=== PATIENT | female | born 1990 | race Two or more races ===

== ENCOUNTER 2022-03-16 13:00 | Inpatient (IN) | payer OTHER ==
[~2022-03-16] VITALS: Ht 160 cm; Wt 56.2 kg
[2022-03-29] MEDS ORDERED: VALACYCLOVIR1000 MG PO (06:56)
[2022-03-29] MEDS ORDERED: PRENATAL TABLE1 EAC1 PO (06:57)
[2022-03-29] MEDS ORDERED: FOLIC ACID20 MG PO (06:58)
== END 2022-03-31 13:52 | disposition home or self-care (01) | DRG 768 ==
LOC: LDR 03-27 13:00 → OB/GYN 03-29 16:44
PROVIDERS: ADMIT Obstetrics & Gynecology Maternal & Fetal Medicine; ATTEND Obstetrics & Gynecology Maternal & Fetal Medicine
PROC: 10E0XZZ Delivery of Products of Conception, External Approach (ICD-10-PCS; principal; 2022-03-29)
PROC: 0DQR0ZZ Repair Anal Sphincter, Open Approach (ICD-10-PCS; 2022-03-29)
PROC: 0KQM0ZZ Repair Perineum Muscle, Open Approach (ICD-10-PCS; 2022-03-29)
PROC: 4A1HXCZ Monitoring of Products of Conception, Cardiac Rate, External Approach (ICD-10-PCS; 2022-03-29)
DX: O70.21 Third degree perineal laceration during delivery, IIIa (principal); Z37.0 Single live birth; Z3A.40 40 weeks gestation of pregnancy; Z20.822 Contact with and (suspected) exposure to COVID-19

== ENCOUNTER 2022-03-23 13:45 | Outpatient (CLI) | payer OTHER | END 2022-03-23 14:47 | disposition home or self-care (01) | LOC: NST 13:45 | PROVIDERS: ATTEND Obstetrics & Gynecology Maternal & Fetal Medicine | DX: Z34.83 Encounter for supervision of other normal pregnancy, third trimester (principal) ==